=== PATIENT | male | born 1980 | race Two or more races ===

== ENCOUNTER → 2019-07-21 | Outpatient (REF) | payer BC ==
[2019-07-21 13:10] LABS: HEMATOCRIT 51.9 % (42.0-52.0); HEMOGLOBIN 17.4 g/dl (13.5-17.5); MEAN CORPUSCULAR HEMOGLOBIN 29.6 pg (27.0-33.0); MEAN CORPUSCULAR HGB CONC 33.5 g/dl (32.0-36.5); MEAN CORPUSCULAR VOLUME 88.3 fl (80.0-96.0); PLATELET COUNT, AUTOMATED 436 10^3/uL (150-450); RED BLOOD COUNT 5.88 10^6/uL (4.30-6.10); WHITE BLOOD COUNT 8.1 10^3/uL (4.0-10.0)
[2019-07-21 13:17] LABS: ALBUMIN 3.7 GM/DL (3.2-5.2); ALT/SGPT 43 U/L (12-78); BILIRUBIN,TOTAL 0.5 MG/DL (0.2-1.0); BLOOD UREA NITROGEN 16 MG/DL (7-18); CALCIUM LEVEL 9.4 MG/DL (8.5-10.1); CARBON DIOXIDE LEVEL 25 MEQ/L (21-32); CHLORIDE LEVEL 106 MEQ/L (98-107); CHOLESTEROL LEVEL 201 MG/DL (<200); CREATININE FOR GFR 0.89 MG/DL (0.70-1.30); GLOMERULAR FILTRATION RATE > 60.0 (>60); GLUCOSE, FASTING 86 MG/DL (70-100); HDL CHOLESTEROL 33 MG/DL (>40); LDL CHOLESTEROL 122 MG/DL (<100); NON-HDL-C 168 MG/DL; POTASSIUM SERUM 4.7 MEQ/L (3.5-5.1); SODIUM LEVEL 139 MEQ/L (136-145); TOTAL PROTEIN 7.5 GM/DL (6.4-8.2); TRIGLYCERIDES LEVEL 231 MG/DL (<150)
== END ==
LOC: M SFHCADAM 09:15
PROVIDERS: ATTEND Physician Assistant
DX: Z00.00 Encounter for general adult medical examination without abnormal findings (principal); J45.40 Moderate persistent asthma, uncomplicated; Z68.31 Body mass index [BMI] 31.0-31.9, adult

== ENCOUNTER → 2019-07-21 | Outpatient (CLI) | payer BC ==
--- NOTE | 2019-07-21 10:47 | REP ---
Clinical: Acute moderate asthma. Technique: PA and lateral. Comparison: Report dated 01/09/2013. Findings: The cardiac silhouette is normal. Subtle perihilar atelectasis/chronic changes along with diffuse coarsened interstitial markings are consistent with a history of chronic reactive airway disease/asthma. No focal consolidation. No effusion. No pneumothorax. Skeletal structures are intact. Impression: Chronic changes related to asthma. Subtle acute perihilar and left infrahilar atelectasis cannot be excluded. Electronically Signed by Aníbal Hameed MD 07/21/2019 10:39 A
== END ==
LOC: M ADAMS 09:20
PROVIDERS: ATTEND Physician Assistant
DX: J45.40 Moderate persistent asthma, uncomplicated (principal); R06.09 Other forms of dyspnea

== ENCOUNTER → 2022-11-23 | Outpatient (REF) | payer BC ==
[2022-11-23 13:00] LABS: BASO # 0.1 10^3/uL (0.0-0.2); BASO % 0.7 % (0.0-1.0); EOS # 0.4 10^3/uL (0.0-0.5); EOS % 3.3 % (0.0-3.0); HEMATOCRIT 51.1 % (42.0-52.0); HEMOGLOBIN 16.4 g/dl (13.5-17.5); LYMPH # 2.7 10^3/uL (1.5-5.0); LYMPH % 20.8 % (24.0-44.0); MEAN CORPUSCULAR HEMOGLOBIN 28.5 pg (27.0-33.0); MEAN CORPUSCULAR HGB CONC 32.1 g/dl (32.0-36.5); MEAN CORPUSCULAR VOLUME 88.9 fl (80.0-96.0); MONO # 1.3 10^3/uL (0.0-0.8); MONO % 10.4 % (2.0-8.0); NEUTROPHILS # 8.3 10^3/uL (1.5-8.5); NEUTROPHILS % 64.6 % (36.0-66.0); PLATELET COUNT, AUTOMATED 427 10^3/uL (150-450); RED BLOOD COUNT 5.75 10^6/uL (4.30-6.10); WHITE BLOOD COUNT 12.9 10^3/uL (4.0-10.0)
[2022-11-23 15:29] LABS: THYROID STIMULATING HORMONE 1.529 uIU/ML (0.55-4.78); TOTAL 25(OH) VITAMIN D 15.8 NG/ML (20.0-100.0)
[2022-11-23 15:36] LABS: ALBUMIN 3.3 G/DL (3.2-5.2); ALKALINE PHOSPHATASE 61 U/L (46-116); ALT/SGPT 17 U/L (7.0-40); AST/SGOT 32 U/L (<34); BILIRUBIN,TOTAL 0.4 MG/DL (0.3-1.2); BLOOD UREA NITROGEN 10 MG/DL (9-23); CALCIUM LEVEL 9.2 MG/DL (8.5-10.1); CARBON DIOXIDE LEVEL 26 MMOL/L (20-31); CHLORIDE LEVEL 100 MMOL/L (98-107); CHOLESTEROL LEVEL 162 MG/DL (<200); CHOLESTEROL RISK RATIO 6.63 (<5); GLOMERULAR FILTRATION RATE > 60.0 (>60); GLUCOSE, FASTING 102 MG/DL (60-100); HDL CHOLESTEROL 24.4 MG/DL (>40); LDL CHOLESTEROL 111.4 MG/DL (<100); NON-HDL-C 138 MG/DL; POTASSIUM SERUM 4.9 MMOL/L (3.5-5.1); SODIUM LEVEL 136 MMOL/L (136-145); TOTAL PROTEIN 7.9 G/DL (5.7-8.2); TRIGLYCERIDES LEVEL 131 MG/DL (<150)
== END ==
LOC: M SFHCADAM 07:28
PROVIDERS: ATTEND Physician Assistant Medical
DX: J45.40 Moderate persistent asthma, uncomplicated (principal); J30.89 Other allergic rhinitis; E78.2 Mixed hyperlipidemia; E66.01 Morbid (severe) obesity due to excess calories

== ENCOUNTER → 2022-11-23 | Outpatient (CLI) | payer BC | LOC: M ADAMS 07:35 | PROVIDERS: ATTEND Physician Assistant Medical | DX: J45.40 Moderate persistent asthma, uncomplicated (principal) ==

== ENCOUNTER → 2024-03-01 | Outpatient (REF) | payer BC, OTHER ==
[2024-03-01 18:43] LABS: ALBUMIN 3.9 G/DL (3.2-5.2); ALKALINE PHOSPHATASE 90 U/L (46-116); ALT/SGPT 168 U/L (7.0-40); AST/SGOT 222 U/L (<34); BILIRUBIN,TOTAL 0.5 MG/DL (0.3-1.2); BLOOD UREA NITROGEN 19 MG/DL (9-23); CALCIUM LEVEL 9.6 MG/DL (8.5-10.1); CARBON DIOXIDE LEVEL 25 MMOL/L (20-31); CHLORIDE LEVEL 101 MMOL/L (98-107); CHOLESTEROL LEVEL 227 MG/DL (<200); CHOLESTEROL RISK RATIO 7.85 (<5); CREATININE FOR GFR 0.71 MG/DL (0.70-1.30); GLOMERULAR FILTRATION RATE > 60.0 (>60); GLUCOSE, FASTING 171 MG/DL (60-100); HDL CHOLESTEROL 28.9 MG/DL (>40); LDL CHOLESTEROL 145.1 MG/DL (<100); NON-HDL-C 198.1 MG/DL; POTASSIUM SERUM 4.4 MMOL/L (3.5-5.1); SODIUM LEVEL 134 MMOL/L (136-145); TOTAL PROTEIN 7.6 G/DL (5.7-8.2); TRIGLYCERIDES LEVEL 265 MG/DL (<150)
[2024-03-01 18:44] LABS: BASO # 0.1 10^3/uL (0.0-0.2); BASO % 1.3 % (0.0-1.0); EOS # 0.2 10^3/uL (0.0-0.5); HEMATOCRIT 50.8 % (42.0-52.0); HEMOGLOBIN 17.5 g/dl (13.5-17.5); LYMPH # 3.3 10^3/uL (1.5-5.0); LYMPH % 35.3 % (24.0-44.0); MEAN CORPUSCULAR HEMOGLOBIN 30.1 pg (27.0-33.0); MEAN CORPUSCULAR HGB CONC 34.4 g/dl (32.0-36.5); MEAN CORPUSCULAR VOLUME 87.3 fl (80.0-96.0); MONO # 0.6 10^3/uL (0.0-0.8); MONO % 6.7 % (2.0-8.0); NEUTROPHILS # 5.2 10^3/uL (1.5-8.5); NEUTROPHILS % 54.5 % (36.0-66.0); PLATELET COUNT, AUTOMATED 390 10^3/uL (150-450); RED BLOOD COUNT 5.82 10^6/uL (4.30-6.10); WHITE BLOOD COUNT 9.5 10^3/uL (4.0-10.0)
[2024-03-01 18:45] LABS: TOTAL 25(OH) VITAMIN D 32.9 NG/ML (20.0-100.0)
[2024-03-01 22:26] LABS: HEMOGLOBIN A1c 9.8 % (4.0-6.0)
== END ==
LOC: M SFHCADAM 12:32
PROVIDERS: ATTEND Physician Assistant Medical
DX: E78.2 Mixed hyperlipidemia (principal); J30.89 Other allergic rhinitis; E55.9 Vitamin D deficiency, unspecified; R73.01 Impaired fasting glucose

== ENCOUNTER → 2024-03-23 | Outpatient (CLI) | payer OTHER | LOC: M RAD 07:37 | PROVIDERS: ATTEND Physician Assistant Medical | DX: R16.0 Hepatomegaly, not elsewhere classified (principal); K76.0 Fatty (change of) liver, not elsewhere classified ==

== ENCOUNTER → 2024-10-04 | Outpatient (REF) | payer BC ==
[2024-10-04 13:49] LABS: ALBUMIN 3.8 G/DL (3.2-5.2); ALKALINE PHOSPHATASE 66 U/L (40-129); ALT/SGPT 70 U/L (7.0-40); AST/SGOT 67 U/L (<34); BILIRUBIN,TOTAL 0.4 MG/DL (0.3-1.2); BLOOD UREA NITROGEN 15 MG/DL (9-23); CALCIUM LEVEL 10.4 MG/DL (8.5-10.1); CARBON DIOXIDE LEVEL 30 MMOL/L (20-31); CHLORIDE LEVEL 101 MMOL/L (98-107); CHOLESTEROL LEVEL 255 MG/DL (<200); GLOMERULAR FILTRATION RATE > 60.0 (>60); GLUCOSE, FASTING 133 MG/DL (60-100); HDL CHOLESTEROL 30.7 MG/DL (>40); LDL CHOLESTEROL 168.1 MG/DL (<100); NON-HDL-C 224.3 MG/DL; POTASSIUM SERUM 5.5 MMOL/L (3.5-5.1); SODIUM LEVEL 138 MMOL/L (136-145); TOTAL PROTEIN 8.5 G/DL (5.7-8.2); TRIGLYCERIDES LEVEL 281 MG/DL (<150)
[2024-10-04 13:50] LABS: THYROID STIMULATING HORMONE 2.089 uIU/ML (0.55-4.78)
[2024-10-04 15:02] LABS: HEMOGLOBIN A1c 6.8 % (4.0-6.0)
== END ==
LOC: M SFHCADAM 09:17
PROVIDERS: ATTEND Physician Assistant Medical
DX: E11.65 Type 2 diabetes mellitus with hyperglycemia (principal); E55.9 Vitamin D deficiency, unspecified; E78.2 Mixed hyperlipidemia

== ENCOUNTER → 2025-02-05 | Outpatient (REF) | payer BC | LOC: M SFHCADAM 10:33 | PROVIDERS: ATTEND Physician Assistant Medical | DX: E55.9 Vitamin D deficiency, unspecified (principal) ==

== ENCOUNTER → 2025-08-03 | Outpatient (REF) | payer BC | LOC: M SFHCPLAZ 17:11 | PROVIDERS: ATTEND Student in an Organized Health Care Education/Training Program | DX: R19.7 Diarrhea, unspecified (principal) ==

== ENCOUNTER → 2025-08-07 | Outpatient (REF) | payer BC ==
[2025-08-07 14:57] LABS: BASO # 0.1 10^3/uL (0.0-0.2); BASO % 1.0 % (0.0-1.0); EOS # 0.3 10^3/uL (0.0-0.5); EOS % 3.0 % (0.0-3.0); LYMPH # 3.1 10^3/uL (1.5-5.0); LYMPH % 33.2 % (24.0-44.0); MONO # 0.7 10^3/uL (0.0-0.8); MONO % 7.7 % (2.0-8.0); NEUTROPHILS # 5.1 10^3/uL (1.5-8.5); NEUTROPHILS % 54.9 % (36.0-66.0); PLATELET COUNT, AUTOMATED 673 10^3/uL (150-450)
[2025-08-07 15:03] LABS: ALT/SGPT 62 U/L (7.0-40); AST/SGOT 63 U/L (<34); CALCIUM LEVEL 9.1 MG/DL (8.5-10.1); CARBON DIOXIDE LEVEL 27 MMOL/L (20-31); CHLORIDE LEVEL 101 MMOL/L (98-107); CHOLESTEROL LEVEL 137 MG/DL (<200); CHOLESTEROL RISK RATIO 6.78 (<5); CREATININE FOR GFR 0.72 MG/DL (0.70-1.30); GLOMERULAR FILTRATION RATE > 90.0 (>60); LDL CHOLESTEROL 71.2 MG/DL (<100); NON-HDL-C 116.8 MG/DL; POTASSIUM SERUM 4.6 MMOL/L (3.5-5.1); SODIUM LEVEL 137 MMOL/L (136-145); TOTAL 25(OH) VITAMIN D 42.0 NG/ML (20.0-100.0); TRIGLYCERIDES LEVEL 228 MG/DL (<150)
[2025-08-07 15:05] LABS: FREE T4 1.18 NG/DL (0.89-1.76)
[2025-08-07 15:45] LABS: CALCIUM LEVEL 9.1 MG/DL (8.5-10.1); CARBON DIOXIDE LEVEL 27 MMOL/L (20-31); CHLORIDE LEVEL 101 MMOL/L (98-107); CREATININE FOR GFR 0.76 MG/DL (0.70-1.30); GLOMERULAR FILTRATION RATE > 90.0 (>60); POTASSIUM SERUM 4.6 MMOL/L (3.5-5.1); SODIUM LEVEL 136 MMOL/L (136-145)
[2025-08-07 19:15] LABS: ESTIMATED AVERAGE GLUCOSE 171.0 MG/DL (60-110)
== END ==
LOC: M SFHCADAM 10:11
PROVIDERS: ATTEND Student in an Organized Health Care Education/Training Program
DX: R19.7 Diarrhea, unspecified (principal); E55.9 Vitamin D deficiency, unspecified; E78.2 Mixed hyperlipidemia; K75.81 Nonalcoholic steatohepatitis (NASH)

== ENCOUNTER → 2025-10-16 | Outpatient (CLI) | payer BC | LOC: M WHC 07:44 | PROVIDERS: ATTEND Physician Assistant Medical | DX: K75.81 Nonalcoholic steatohepatitis (NASH) (principal) ==